=== PATIENT | female | born 1960 | race Caucasian/White ===

== ENCOUNTER 2018-04-19 14:21 | Emergency (ER) | payer OTHER ==
[~2018-04-19] VITALS: Ht 160 cm; Wt 73.6 kg
[~2018-04-19 14:21] MED LIST: FLUO20CA38 PO; HYDR-3498 PO; HYDR-762 PO; HYDR25TA6 PO; LORA1TAB PO; ONDA4TAB35 PO; PRAV20TA2 PO
[2018-04-19 14:25] VITALS: Ht 160 cm; Wt 73.6 kg
[2018-04-19] MEDS ORDERED: SOD CHLORIDE 0.9% 500 ML IV STA (14:59)
[2018-04-19] MEDS ORDERED: HYDROmorphONE 1 MG/ML SYG IV STA (14:59)
[2018-04-19] MEDS ORDERED: ONDANSETRON 4 MG INJ IV STA (14:59)
--- NOTE | 2018-04-19 15:03 | ERD ---
ER Documentation Chief Complaint Chief Complaint abd pain x this am denies N/V/D or pain with urination HPI This is a 57-year-old female who complains of diffuse lower abdominal pain onset this morning described as crampy with nausea but no vomiting or diarrhea no dysuria or hematuria or back pain no chest pain or shortness of breath. 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 ROS All systems reviewed and are negative except as per history of present illness. Medications Home Meds Reported Medications Simvastatin* (Zocor*) 20 Mg Tablet, 20 MG PO QHS, #30 TAB 04/19/18 Benazepril Hcl* (Benazepril Hcl*) 20 Mg Tablet, 20 MG PO DAILY, #30 TAB 04/19/18 Hydrochlorothiazide* (Hydrochlorothiazide*) 25 Mg Tab, 25 MG PO DAILY, #30 TAB 04/19/18 Fluoxetine Hcl* (Prozac*) 40 Mg Capsule, 40 MG PO DAILY, CAP 04/19/18 Discontinued Reported Medications Pravastatin Sodium (Pravastatin Sodium) 20 Mg Tablet, 20 MG PO DAILY 01/18/12 Hydrochlorothiazide (Hydrochlorothiazide) 25 Mg Tablet, 12.5 MG PO DAILY 01/18/12 Fluoxetine Hcl* (Prozac*) 20 Mg Capsule, 20 MG PO DAILY 01/18/12 Discontinued Scripts Lorazepam* (Lorazepam*) 1 Mg Tablet, 1 MG PO Q8, #10 TAB Prov:KIRK DALY PA-C 10/27/15 Ondansetron Hcl* (Zofran* ODT) 4 mg -ODT Tab.disper, 4 MG PO Q6 PRN for NAUSEA AND/OR VOMITING, #30 TAB Prov:DEBORAH KELLY MD 05/13/15 Hydrocodone Bit-Acetaminophen* ([place]*) 10-325 Mg Tablet, 1 TAB PO Q6 PRN for PAIN, #12 TAB Prov:DEBORAH KELLY MD 05/13/15 Hydrocodone Bit-Acetaminophen* ([place]*) 5-325 Mg Tab, 1 TAB PO Q6 PRN for PAIN, #10 TAB Prov:KIRK DALY PA-C 09/11/14 Allergies Allergies: Coded Allergies: No Known Allergy (Unverified , 04/19/18) PMhx/Soc History of Surgery: Yes (gallbladder) Anesthesia Reaction: No Hx Neurological Disorder: No Hx Respiratory Disorders: No Hx Cardiac Disorders: No Hx Psychiatric Problems: Yes (DEPRESSION) Hx Miscellaneous Medical Probl: Yes (High Cholesterol, HTN) Hx Alcohol Use: No Hx Substance Use: No Hx Tobacco Use: No Smoking Status: Never smoker FmHx Family History: No coronary disease Physical Exam Vitals Vital Signs Date Temp Pulse Resp B/P (MAP) Pulse Ox O2 O2 Flow FiO2 Time Delivery Rate 04/19/18 98.6 82 19 132/62 99 14:25 (85) Physical Exam Const: Well-developed, well-nourished Head: Atraumatic, normocephalic Eyes: Normal Conjunctiva, PERRLA, EOMI, normal sclera, no nystagmus ENT: Normal External Ears, Nose and Mouth, moist mucus membranes. Neck: Full range of motion. No meningismus, no lymphadenopathy. Resp: Clear to auscultation bilaterally, no wheezing, rhonchi, rales Cardio: Regular rate and rhythm, no murmurs, S1 S2 present Abd: Soft, diffuse lower abdominal tenderness, non distended. Normal bowel sounds, no guarding or rebound, no pulsitile abdominal masses or bruits Skin: No petechiae or rashes, no ecchymosis , no maculopapular rash Back: No midline or flank tenderness Ext: No cyanosis, or edema, FROM x 4, normal inspection, neurovascularly intact x 4 Neur: Awake and alert, STR 5/5 x 4, sensation intact x 4, no focal findings, cerebellum intact Psych: Normal Mood and Affect Result Diagram: 04/19/18 1551 04/19/18 1551 Results 24 hrs Laboratory Tests Test 04/19/18 15:51 White Blood Count 11.4 10^3/ul Red Blood Count 4.27 10^6/ul Hemoglobin 12.7 g/dl Hematocrit 38.2 % Mean Corpuscular Volume 89.5 fl Mean Corpuscular Hemoglobin 29.7 pg Mean Corpuscular Hemoglobin Concent 33.2 g/dl Red Cell Distribution Width 12.0 % Platelet Count 338 10^3/UL Mean Platelet Volume 9.7 fl Immature Granulocytes % 0.400 % Neutrophils % 56.7 % Lymphocytes % 33.7 % Monocytes % 7.5 % Eosinophils % 1.1 % Basophils % 0.6 % Nucleated Red Blood Cells % 0.0 /100WBC Immature Granulocytes # 0.040 10^3/ul Neutrophils # 6.5 10^3/ul Lymphocytes # 3.8 10^3/ul Monocytes # 0.9 10^3/ul Eosinophils # 0.1 10^3/ul Basophils # 0.1 10^3/ul Nucleated Red Blood Cells # 0.0 10^3/ul Urine Color YELLOW Urine Clarity CLEAR Urine pH 5.0 Urine Specific [place] 1.014 Urine Ketones NEGATIVE mg/dL Urine Nitrite NEGATIVE mg/dL Urine Bilirubin NEGATIVE mg/dL Urine Urobilinogen NEGATIVE mg/dL Urine Leukocyte Esterase NEGATIVE Wendy/ul Urine Hemoglobin NEGATIVE mg/dL Urine Glucose NEGATIVE mg/dL Urine Total Protein NEGATIVE mg/dl Sodium Level 142 mmol/L Potassium Level 3.7 mmol/L Chloride Level 107 mmol/L Carbon Dioxide Level 26 mmol/L Anion Gap 9 Blood Urea Nitrogen 22 mg/dl Creatinine 0.94 mg/dl Est Glomerular Filtrat Rate mL/min > 60 mL/min Glucose Level 94 mg/dl Calcium Level 10.2 mg/dl Total Bilirubin 0.4 mg/dl Direct Bilirubin 0.00 mg/dl Indirect Bilirubin 0.4 mg/dl Aspartate Amino Transf (AST/SGOT) 38 IU/L Alanine Aminotransferase (ALT/SGPT) 22 IU/L Alkaline Phosphatase 100 IU/L Total Protein 8.2 g/dl Albumin 4.4 g/dl Globulin 3.80 g/dl Albumin/Globulin Ratio 1.15 Current Medications Medications Dose Sig/Ruiz Start Time Status Last (Trade) Ordered Route PRN Stop Time Admin Dose Reason Admin Sodium 500 ml @ Q1H STAT 04/19/18 DC 04/19/18 Chloride 500 mls/hr IV 14:59 15:32 04/19/18 15:58 1 mg ONCE STAT 04/19/18 DC 04/19/18 Hydromorphone IV 14:59 15:31 HCl 04/19/18 15:01 (Dilaudid) Ondansetron 4 mg ONCE STAT 04/19/18 DC 04/19/18 HCl (Zofran IV 14:59 15:31 Inj) 04/19/18 15:01 40 ml ONCE STAT 04/19/18 DC 04/19/18 Miscellaneous PO 17:46 17:59 Medication 04/19/18 17:47 (Gi Cocktail (2)) Belladonna/ 2 tab ONCE STAT 04/19/18 DC 04/19/18 Phenobarbital PO 17:46 17:59 () 04/19/18 17:47 Procedures/MDM Patient: TARIK FERRARI : 1960 Age: 57 Sex: F MR #: [id number] DOS: 04/19/18 1459 Ordering MD: KAROLINE KRAUSE DO Location: E/R Room/Bed: PROCEDURE: CT Abdomen and Pelvis with contrast. CLINICAL INDICATION: Abdominal pain. TECHNIQUE: CT scan of the abdomen and pelvis with contrast was performed on a multi-detector high-resolution CT scanner. The patient was scanned following the uncomplicated intravenous administration of 90 cc of Omnipaque 300. Coronal and sagittal reformatted images were obtained from the axial source images. Images were reviewed on a high-resolution PACS workstation. The total exam CTDI equals 10 mGy and the total exam DLP equals 575 mGy-cm. DICOM images are a vailable. 3-D reconstructions were notperformed. One or more of the following dose reduction techniques were utilized: 1.) Automated exposure control 2.) Adjustment of the mA +/- kV according to patient's size 3.) Use of iterative reconstruction technique. COMPARISON: 05/13/2015 FINDINGS: CT abdomen: Heart (where visible): Unremarkable. Lung bases: No evidence of pneumonia, mass, pleural effusion. Liver: Normal attenuation. No visible focal mass. Biliary ductal system: No evidence of significant dilatation. Gallbladder: Surgically absent. Pancreas: Unremarkable Stomach: No identifiable focal mass or gross wall thickening. Spleen: No gross splenomegaly. Abdominal colon: Normal in caliber and course. Abdominal small bowel: Normal in caliber, course, and mucosal pattern. Adrenal glands: No visible masses. Right Kidney: Normal in size and contour without focal mass or collecting system dilatation. Left kidney: Normal in size and contour without focal mass or collecting system dilatation. Abdominal aorta: Normal caliber. Lymph nodes: No significantly enlarged nodes. CT pelvis: Pelvic colon: Normal in caliber and course. The wall of the sigmoid colon appea rs mildly prominent however this region is completely empty, possibly accentuating the wall. There is no evidence of diverticular disease. Pelvic small bowel: Normal in caliber and course. Appendix: Identified. No evidence of inflammation. Urinary bladder: Normal in size and contour without visible wall thickening. Reproductive structures: The uterus is retroflexed. Bony structures included in the scan: No clinically significant abnormalities. Neither ovary appears distinct from the uterus and broad ligament; however, this appearance is stable since the prior study. There is no free fluid in the pelvis. IMPRESSION: 1. Surgical absence of the gallbladder. 2. Question of mild circumferential thickening of the wall of the collapsed sigmoid colon. This appearance may be an artifact of lack of distension. Colonoscopy might be considered if this patient's symptoms would be compatible with a colonic inflammatory process. 3. Chronically poorly defined ovaries. If the patient's pain could be gynecologic in nature, correlating with transvaginal sonography might be of value. 4. Otherwise unremarkable CT of the abdomen and pelvis with no evidence of bowel obstruction, bowel perforation, urinary tract stone, urinary tract obstruction, or other focal inflammatory process. RPTAT:AAJJ Physician Mathieu Date Time Electronically viewed and signed by Physician Mathieu on 04/19/2018 17:16 GW/ Patient's labs look good. Patient has possible inflammatory process in the colon both for to GI for colonoscopy. Otherwise we will treat accordingly with some pain meds and antibiotic therapy. Patient feels much better at this time, and vital signs are normal, symptoms have improved. I did give strict instructions to return to the ED if symptoms continue or worsen, patient will otherwise follow-up with primary care physician. Patient understood instructions and agreed to plan. Disclaimer: Inadvertent spelling and grammatical errors are likely due to [employer]/dictation software use and do not reflect on the overall quality of patient care. Also, please note that the electronic time recorded on this note does not necessarily reflect the actual time of the patient encounter. Departure Diagnosis: Primary Impression: Abdominal pain Abdominal location: lower abdomen, unspecified Qualified Codes: R10.30 - Lower abdominal pain, unspecified Condition: KAROLINE Saba DO Apr 19, 2018 15:03
[2018-04-19] MEDS ORDERED: HYDR25TA6 PO (15:06)
[2018-04-19] MEDS ORDERED: FLUO40CA10 PO (15:06)
[2018-04-19] MEDS ORDERED: SIMV20TA PO (15:07)
[2018-04-19] MEDS ORDERED: BENA20TA4 PO (15:07)
[2018-04-19] MEDS ORDERED: BELLADONNA/PHENOBARBITAL TAB PO STA (17:46)
[2018-04-19] MEDS ORDERED: LIDOCAINE/MYLANTA 40 ML BTL PO STA (17:46)
[2018-04-19 18:24] VITALS: BP 121/68; PULSE 77; RESP 19
[2018-04-19] MEDS ORDERED: HYDR-3980 PO (18:25)
[2018-04-19] MEDS ORDERED: CIPR500T4 PO (18:25)
[2018-04-19] MEDS ORDERED: DICY10CA40 PO (18:25)
[2018-04-19] MEDS ORDERED: METR500T PO (18:25)
[2018-04-19] MEDS ORDERED: IOHEXOL 300MG/ML 150 ML BTL ONE (23:03)
[2018-04-19] MEDS ORDERED: SOD CHLORIDE 0.9% 100 ML ONE (23:03)
== END 2018-04-19 18:46 | disposition home or self-care (01) ==
LOC: E/R 14:21
DX: R10.30 Lower abdominal pain, unspecified (principal); R11.0 Nausea; I10 Essential (primary) hypertension
CPT/HCPCS: 74177; 80053; 81003; 85025; 96361; 96374; 96375; 99285; J1170; J2405; J7040; Q9967

== ENCOUNTER 2018-09-30 12:10 | Emergency (ER) | payer OTHER ==
[~2018-09-30] VITALS: Ht 157.5 cm; Wt 78.0 kg
[~2018-09-30 12:10] MED LIST changes: +BENA20TA4 PO; +CIPR500T4 PO; +DICY10CA40 PO; -FLUO20CA38 PO; +FLUO40CA10 PO; -HYDR-3498 PO; +HYDR-3980 PO; -HYDR-762 PO; +HYDR25CA PO; +LORA-441 PO; -LORA1TAB PO; +METR500T PO; -ONDA4TAB35 PO; -PRAV20TA2 PO; +SIMV20TA PO
[2018-09-30 12:15] VITALS: BP 146/84; PULSE 81; RESP 18; Ht 157.5 cm; Wt 78.0 kg
--- NOTE | 2018-09-30 12:59 | ERD ---
ER Documentation Chief Complaint Chief Complaint ANXIETY ATTACK HPI This is a 58-year-old female patient presents emergency room emotionally labile, tearful, states that she had very upsetting discussion on phone with her sister who lives in [place] and feels like she is having a panic attack. Denies chest pain, no shortness of breath, no dizziness. Patient is hyperventilating and complaining of tingling in her fingers. States she has history of anxiety and takes Prozac. States when she has anxiety attacks they are helped with Ativan however she does not have prescription at home as her PMD does not want to prescribe her Ativan. Patient denies SI or HI. Patient states she has not been to a counselor or psychiatrist in the past. ROS All systems reviewed and are negative except as per history of present illness. Medications Home Meds Active Scripts Lorazepam* (Ativan*) 0.5 Mg Tablet, 0.5 MG PO Q8 for anxiety for 2 Days, #4 TAB Prov:SANDEE FERMIN NP 09/30/18 Hydroxyzine Pamoate* (Vistaril*) 25 Mg Capsule, 25 MG PO Q6H PRN for ANXIETY for 5 Days, #20 CAP Prov:SANDEE FERMIN INTENSIVE CARE SPECIALIST 09/30/18 Hydrocodone/Acetaminophen ([place] 10-325 Tablet) 1 Each Tablet, 1 TAB PO Q6H PRN for PAIN, #7 TAB Prov:KAROLINE KRAUSE DO 04/19/18 Dicyclomine HCl (Dicyclomine HCl) 10 Mg Capsule, 20 MG PO TID PRN for ABDOMINAL CRAMPING, #20 CAP Prov:KAROLINE KRAUSE DO 04/19/18 Metronidazole* (Flagyl*) 500 Mg Tablet, 500 MG PO TID for 7 Days, TAB Prov:KAROLINE KRAUSE DO 04/19/18 Ciprofloxacin Hcl* (Ciprofloxacin Hcl*) 500 Mg Tablet, 500 MG PO BID for 7 Days, TAB Prov:KAROLINE KRAUSE DO 04/19/18 Reported Medications Simvastatin* (Zocor*) 20 Mg Tablet, 20 MG PO QHS, #30 TAB 04/19/18 Benazepril Hcl* (Benazepril Hcl*) 20 Mg Tablet, 20 MG PO DAILY, #30 TAB 04/19/18 Hydrochlorothiazide* (Hydrochlorothiazide*) 25 Mg Tab, 25 MG PO DAILY, #30 TAB 04/19/18 Fluoxetine Hcl* (Prozac*) 40 Mg Capsule, 40 MG PO DAILY, CAP 04/19/18 Allergies Allergies: Coded Allergies: No Known Allergy (Unverified , 04/19/18) PMhx/Soc History of Surgery: Yes (CHOLECYSTECTOMY, HAND SURGERY, BACK SX) Anesthesia Reaction: No Hx Neurological Disorder: No Hx Respiratory Disorders: No Hx Cardiac Disorders: Yes (HTN) Hx Psychiatric Problems: Yes (DEPRESSION) Hx Miscellaneous Medical Probl: Yes (High Cholesterol, HTN) Hx Alcohol Use: No Hx Substance Use: No Hx Tobacco Use: No Smoking Status: Never smoker FmHx Family History: No diabetes, No coronary disease, No other Physical Exam Vitals Vital Signs Date Temp Pulse Resp B/P (MAP) Pulse Ox O2 O2 Flow FiO2 Time Delivery Rate 09/30/18 98.1 81 18 146/84 99 12:15 (104) Physical Exam Const: No acute distress Head: Atraumatic Eyes: Normal Conjunctiva, PERRL, EOMI ENT: Normal External Ears, Nose and Mouth. Neck: Full range of motion. No meningismus. Resp: Clear to auscultation bilaterally Cardio: Regular rate and rhythm, no murmurs Abd: Soft, non tender, non distended. Normal bowel sounds Skin: No petechiae or rashes Back: No midline or flank tenderness Ext: No cyanosis, or edema Neur: Awake and alert, CN II,-XII intact, clear speech, steady gait, neg Romberg, no ataxia Psych: labile Mood, A/Ox4, appropriate reason and judgement Results 24 hrs Current Medications Medications Dose Sig/Ruiz Start Time Status Last (Trade) Ordered Route PRN Stop Time Admin Dose Reason Admin Lorazepam 1 mg ONCE ONCE 09/30/18 DC 09/30/18 (Ativan) PO 13:00 09/30/18 12:53 13:01 Procedures/MDM PROCEDURES/MDM -Medications: Ativan Patient tolerated medication well with no adverse reactions. Patient reported improvement in anxiety symptoms. MDM: This 58 yo patient presents with what she describes as a typical anxiety attack after upsetting conversation. Pt denies any other symptoms such as CP, SOB, abdominal pain. Patient was successfully treated with Ativan 1 mg PO. Pt had relief of crying, hyperventilation, and sense of anxiety attack. Lengthy discussion had with patient regarding self-care and coping techniques, stress management, and avoiding upsetting conversations. Pt was provided with brief course of Ativan and longer course of use of Vistaril for anxiety. Pt provided with referrals for psychological counseling and instructed to follow-up with her PMD shaquille. Patient was instructed to return to the ER immediately with any SI/HI, CP, or worsening or changing symptoms. Pt calm and appropriate at time of discharge. Patient discharged to care of . [facility] database reviewed for controlled substance history. There is no indication the patient is abusing prescription medications or is at risk for misuse. History and Physical exam demonstrate the prescribed medication is indicated for the treatment of the patient's condition. DISPOSITION and PLAN: RX: Ativan, Vistaril The patient has been discharge home to follow-up with community physician. Departure Diagnosis: Primary Impression: Anxiety attack Condition: Stable SANDEE FERMIN NP Sep 30, 2018 12:59
[2018-09-30] MEDS ORDERED: LORAZEPAM 1 MG TAB PO ONE (13:00)
== END 2018-09-30 13:55 | disposition home or self-care (01) ==
LOC: FTE 12:10
DX: F41.9 Anxiety disorder, unspecified (principal); I10 Essential (primary) hypertension
CPT/HCPCS: 99283